=== PATIENT | female | born 1955 | race Caucasian/White ===

== ENCOUNTER → 2017-04-02 | Outpatient (CLI) | payer OTHER ==
--- NOTE | 2017-04-04 11:53 | MM ---
Reason for exam: screening (asymptomatic). Last mammogram was performed 2 years and 2 months ago. History: Patient is postmenopausal. Family history of breast cancer in 2 aunts at age 35. Physical Findings: A clinical breast exam by your physician is recommended on an annual basis and results should be correlated with mammographic findings. MG 3D Screening Mammo W/Cad Bilateral CC and MLO view(s) were taken. Prior study comparison: February 12, 2015, bilateral MG screening mammo w CAD. December 16, 2013, bilateral digital screening mammo w/CAD. There are scattered fibroglandular densities. No significant changes when compared with prior studies. ASSESSMENT: Negative, BI-RAD 1 RECOMMENDATION: Routine screening mammogram of both breasts in 1 year.
== END | disposition home or self-care (01) ==
LOC: RADMAMWWP 13:25
PROVIDERS: ATTEND Family Medicine
DX: Z12.31 Encounter for screening mammogram for malignant neoplasm of breast (principal)
CPT/HCPCS: 77063; G0202

== ENCOUNTER → 2018-04-15 | Outpatient (CLI) | payer OTHER ==
--- NOTE | 2018-04-17 09:12 | MM ---
Reason for exam: screening (asymptomatic). Last mammogram was performed 1 year ago. History: Patient is postmenopausal. Family history of breast cancer in 2 aunts at age 35. Physical Findings: A clinical breast exam by your physician is recommended on an annual basis and results should be correlated with mammographic findings. MG 3D Screening Mammo W/Cad Bilateral CC and MLO view(s) were taken. Prior study comparison: April 02, 2017, bilateral MG 3d screening mammo w/cad. February 12, 2015, bilateral MG screening mammo w CAD. There are scattered fibroglandular densities. Global asymmetry left upper outer quadrant. No significant changes when compared with prior studies. ASSESSMENT: Negative, BI-RAD 1 RECOMMENDATION: Routine screening mammogram of both breasts in 1 year.
== END | disposition home or self-care (01) ==
LOC: RADMAMWWP 10:58
PROVIDERS: ATTEND Pediatrics
DX: Z12.31 Encounter for screening mammogram for malignant neoplasm of breast (principal)
CPT/HCPCS: 77063; 77067

== ENCOUNTER → 2018-07-22 | Outpatient (CLI) | payer OTHER ==
--- NOTE | 2018-07-22 09:11 | US ---
EXAMINATION TYPE: US abdomen limited DATE OF EXAM: 07/22/2018 COMPARISON: US CLINICAL HISTORY: Z82.71 Family history of polycystic Kidney. Patient not NPO, but filled bladder for Abdomen limited order. EXAM MEASUREMENTS: Liver Length: 16.0 cm Gallbladder Wall: 0.2 cm CBD: 0.3 cm Right Kidney: 9.4 x 4.7 x 3.4 cm Left Kidney:10.0 x 5.9 x 4.6cm Pancreas: limitedly seen due to overlying bowel gas Liver: attenuated posteriorly right lobe Gallbladder: wnl Evidence for sonographic Torres's sign: no CBD: wnl Right Kidney: wnl Left Kidney: mild hydronephrosis noted post void; inferior pole simple cortical cyst seen = 1.2 x 1.1 x 1.0cm Bladder: wnl; bilateral ureteral jets were seen; post void volume wnl at 0.7ml. IMPRESSION: 1. Mild left-sided hydronephrosis following micturition. 2. Simple cyst lower pole left kidney.
== END | disposition home or self-care (01) ==
LOC: RADUSWWP 08:13
PROVIDERS: ATTEND Pediatrics
DX: N28.1 Cyst of kidney, acquired (principal); N13.30 Unspecified hydronephrosis; Z82.71 Family history of polycystic kidney
CPT/HCPCS: 76705

== ENCOUNTER 2018-11-07 14:58 | Emergency (ER) | payer OTHER ==
[2018-11-07] MEDS ORDERED: ONDANSETRON 4 MG/2 ML VIAL IVP STA (15:54)
[2018-11-07] MEDS ORDERED: SODIUM CHLORIDE 0.9% 500 ML 500 ML IV STA (15:54)
[2018-11-07] MEDS ORDERED: KETOROLAC 30 MG/ML 1 ML VIAL IVP STA ×2 (15:54→17:51)
--- NOTE | 2018-11-07 16:28 | CT ---
EXAMINATION TYPE: CT abdomen pelvis wo con DATE OF EXAM: 11/07/2018 COMPARISON: None INDICATION: Right sided pain with nausea and hematuria DLP: 414.2 mGycm, Automated exposure control for dose reduction was used. CONTRAST: 0 mL of Isovue 300. Study performed without Oral Contrast TECHNIQUE: Axial images were obtained from above the diaphragm to the pubic rami in the axial plane a t 5 mm thick sections. Reconstructed images are reviewed on the computer in the coronal plane. FINDINGS: Limited CT sections are obtained the lung bases. The lung bases are clear. There is a moderate size hiatal hernia present. CT ABDOMEN: Liver: Normal Spleen: Normal Pancreas: Fatty infiltrated. Adrenal glands: The adrenal glands are normal. Gallbladder: Normal Kidneys: Right kidney: There is mild right hydronephrosis. A mild to moderate right hydroureter is present. Th ere is a 0.3 cm calcification just above the right ureterovesical junction. Left kidney: Moderate hydronephrosis and hydroureter is present. There is a calcification at the prox imal left ureteral vesicle junction measuring 0.6 cm. No left hydroureter is present. Aorta: Vascular calcification is within the aorta. Inferior vena cava: Normal. CT PELVIS: Loops of bowel within the abdomen and pelvis are normal. This study is performed without oral con trast limiting bowel evaluation. Appendix: Not identified. No suspicious inflammatory changes or dilated tubular structures are eviden t. Urinary bladder: Decompressed and cannot be evaluated Genitourinary structures: Uterus and ovaries are absent. Osseous structures: No suspicious lytic or sclerotic lesions. Facet degenerative changes within the l umbar spine. Scoliosis is present IMPRESSIONS: 1. 0.6 cm calcification at the left ureterovesical junction with moderate left hydronephrosis. 2. 0.3 cm distal right ureteral vesicle junction stone with mild right hydroureter nephrosis and hydr oureter.
--- NOTE | 2018-11-07 16:59 | XR ---
EXAMINATION TYPE: XR KUB DATE OF EXAM: 11/07/2018 COMPARISON: NONE HISTORY: Abdominal pain TECHNIQUE: 2 views upright FINDINGS: There is a mild thoracolumbar levorotoscoliosis. Bowel gas pattern is normal. There is no s ign of intestinal obstruction or pneumoperitoneum. Fecal pattern is normal. There is no sign of a mas s. There are no pathologic calcifications over the kidneys. There is possible mild pleural thickening on the left lower lateral chest wall. IMPRESSION: Nonacute abdomen. Possible mild left-sided pleural thickening.
[2018-11-07 17:22] LABS: Basophils % (A) 0 %; Eosinophils # (A) 0.1 k/uL (0-0.7); Eosinophils % (A) 1 %; HCT 39.3 % (34.0-46.0); HGB 12.8 gm/dL (11.4-16.0); Lymphocytes # (A) 1.3 k/uL (1.0-4.8); Lymphocytes % (A) 11 %; MCH 27.8 pg (25.0-35.0); MCHC 32.7 g/dL (31.0-37.0); MCV 85.1 fL (80.0-100.0); Mean Platelet Volume 6.9; Monocytes # (A) 0.3 k/uL (0-1.0); Monocytes % (A) 2 %; Neutrophils # (A) 9.9 k/uL (1.3-7.7); Neutrophils % (A) 85 %; Platelet Count 353 k/uL (150-450); RBC 4.61 m/uL (3.80-5.40); RDW 13.4 % (11.5-15.5); WBC 11.5 k/uL (3.8-10.6)
--- NOTE | 2018-11-07 17:26 | ED ---
Abdominal Pain HPI - General Chief Complaint: Abdominal Pain Stated Complaint: BACK PAIN/FLANK PAIN Time Seen by Provider: 11/07/18 15:38 Source: patient, RN notes reviewed Mode of arrival: ambulatory Limitations: no limitations - History of Present Illness Initial Comments: This is a 63-year-old female who presents to the emergency department with chief complaint of right flank pain. Patient reports sudden onset of right flank pain with radiation to the abdomen approximately an hour and half prior to arrival. She reports the pain is throbbing and pressure-like in nature. She reports nausea but denies vomiting. She reports difficulty urinating, but denies dysuria or increased frequency. She denies fevers or chills. Denies history of kidney stones. - Related Data Previous Rx's Medication Instructions Recorded Ketorolac [Toradol] 10 mg PO Q6HR #8 tab 11/07/18 Tamsulosin [Flomax] 0.4 mg PO DAILY #7 cap 11/07/18 Allergies Allergy/AdvReac Type Severity Reaction Status Date / Time procaine [From Novocain] Allergy Rash/Hives Verified 11/07/18 15:31 propoxyphene [From Darvon] Allergy Rash/Hives Verified 11/07/18 15:31 pseudoephedrine Allergy Rash/Hives Verified 11/07/18 15:31 [From Sudafed] Review of Systems ROS Statement: Those systems with pertinent positive or pertinent negative responses have been documented in the HPI. ROS Other: All systems not noted in ROS Statement are negative. Past Medical History Past Medical History: Diabetes Mellitus History of Any Multi-Drug Resistant Organisms: None Reported Past Surgical History: Ear Surgery, Hernia Repair, Hysterectomy Additional Past Surgical History / Comment(s): bladder suspension eye Past Psychological History: No Psychological Hx Reported Smoking Status: Never smoker Past Alcohol Use History: None Reported Past Drug Use History: None Reported General Exam - General Exam Comments Initial Comments: General: Awake and alert, well-developed; in no apparent distress. HEENT: Head atraumatic, normocephalic. Pupils are equal, round and reactive to light. Extraocular movements intact. Oropharynx moist without erythema or exudate. Neck: Supple. Normal ROM. Cardiovascular: Regular rate and rhythm. No murmurs, rubs or gallops. Chest symmetrical. Respiratory: Lungs clear to auscultation bilaterally. No wheezes, rales or rhonchi. Normal respiratory effort with no use of accessory muscles. Abdomen: Soft, non-tender, non-distended. No rigidity, rebound or guarding. Normal bowel sounds in all 4 quadrants. No CVA tenderness bilaterally. Musculoskeletal: Normal ROM, no tenderness bilateral upper and lower extremities. Ambulating normally. Skin: [place], warm and dry without rashes or lesions. Neurological: Alert and oriented x3. Speech is fluent and answers are appropriate. Psychiatric: Normal mood and affect. No overt signs of depression or anxiety noted. Limitations: no limitations Course Vital Signs 11/07/18 15:27 Temperature 98.0 F Pulse Rate 75 Respiratory 18 Rate Blood Pressure 146/87 O2 Sat by Pulse 100 Oximetry - Reevaluation(s) Reevaluation #1: 11/07/18 17:51 Patient resting comfortably on ED stretcher at this time. She is in no acute distress. Findings have been discussed with patient. The case has been discussed with attending physician, Dr. Avila who was in contact with urologist, Dr. Corona. Patient given option of inpatient versus outpatient treatment. Dr. Corona will see patient in the office tomorrow. This is discussed with patient who does not want to be admitted and would like to be discharged home. She will be discharged home with prescription for Flomax and pain medication. Medical Decision Making - Medical Decision Making This is a 63-year-old female who presents to the emergency department with chief complaint of right flank pain. Computed tomography scan reveals evidence for a 0.3 cm right distal ureter stone and 0.6 cm left stone with bilateral hydronephrosis. No significant evidence for infection. Kidney function is normal. Patient has been in no acute distress and vital signs are stable. She was like to follow up outpatient. She is discharged home at this time with prescriptions for Flomax and Toradol. She is instructed to follow up tomorrow. She is in agreement with plan and voices understanding. All questions have been answered. - Lab Data Result diagrams: 11/07/18 16:35 11/07/18 16:35 Lab Results 11/07/18 11/07/18 11/07/18 Range/Units 16:35 16:35 16:35 WBC 11.5 H (3.8-10.6) k/uL RBC 4.61 (3.80-5.40) m/uL Hgb 12.8 (11.4-16.0) gm/dL Hct 39.3 (34.0-46.0) % MCV 85.1 (80.0-100.0) fL MCH 27.8 (25.0-35.0) pg MCHC 32.7 (31.0-37.0) g/dL RDW 13.4 (11.5-15.5) % Plt Count 353 (150-450) k/uL Neutrophils % 85 % Lymphocytes % 11 % Monocytes % 2 % Eosinophils % 1 % Basophils % 0 % Neutrophils # 9.9 H (1.3-7.7) k/uL Lymphocytes # 1.3 (1.0-4.8) k/uL Monocytes # 0.3 (0-1.0) k/uL Eosinophils # 0.1 (0-0.7) k/uL Basophils # 0.0 (0-0.2) k/uL Sodium 139 (137-145) mmol/L Potassium 4.3 (3.5-5.1) mmol/L Chloride 105 (98-107) mmol/L Carbon Dioxide 26 (22-30) mmol/L Anion Gap 8 mmol/L BUN 14 (7-17) mg/dL Creatinine 0.82 (0.52-1.04) mg/dL Est GFR (CKD-EPI)AfAm 88 (>60 ml/min/1.73 sqM) Est GFR (CKD-EPI)NonAf 76 (>60 ml/min/1.73 sqM) Glucose 196 H (74-99) mg/dL Calcium 10.0 (8.4-10.2) mg/dL Total Bilirubin 0.3 (0.2-1.3) mg/dL AST 23 (14-36) U/L ALT 27 (9-52) U/L Alkaline Phosphatase 79 (38-126) U/L Total Protein 7.5 (6.3-8.2) g/dL Albumin 4.4 (3.5-5.0) g/dL Lipase 74 (23-300) U/L Urine Color Yellow Urine Appearance Cloudy H (Clear) Urine pH 5.0 (5.0-8.0) Ur Specific [place] 1.017 (1.001-1.035) Urine Protein Trace H (Negative) Urine Glucose (UA) 1+ H (Negative) Urine Ketones Negative (Negative) Urine Blood Moderate H (Negative) Urine Nitrite Negative (Negative) Urine Bilirubin Negative (Negative) Urine Urobilinogen <2.0 (<2.0) mg/dL Ur Leukocyte Esterase Large H (Negative) Urine RBC 36 H (0-5) /hpf Urine WBC 36 H (0-5) /hpf Ur Squamous Epith Cells 18 H (0-4) /hpf Urine Mucus Occasional H (None) /hpf - Radiology Data Radiology results: report reviewed CT abdomen and pelvis impressions: 1. 0.6 cm calcification at the left ureterovesicle junction with moderate left hydronephrosis. 2. 0.3 cm distal right ureterovesicle junction stone with mild right hydroureter and hydronephrosis. Disposition Clinical Impression: Bilateral ureteral calculi, Hydronephrosis with ureteral calculus Disposition: HOME SELF-CARE Condition: Good Instructions: Ureteral Stones (ED), Hydronephrosis (ED) Additional Instructions: As discussed, please follow-up with Dr. Corona in the morning. Please take medications as prescribed. Please follow up with primary care provider within 1- 2 days. Return to emergency department if symptoms should worsen or any concerns arise. Prescriptions: Ketorolac [Toradol] 10 mg PO Q6HR #8 tab Tamsulosin [Flomax] 0.4 mg PO DAILY #7 cap Is patient prescribed a controlled substance at d/c from ED?: No Referrals: Renato Mittal MD [Primary Care Provider] - 1-2 days David Corona MD [STAFF PHYSICIAN] - 1-2 days Time of Disposition: 17:59
[2018-11-07 17:30] LABS: Appearance,Urine Cloudy (Clear); Bilirubin,Urine Negative (Negative); Blood,Urine Moderate (Negative); Color,Urine Yellow; Glucose,Urine (UA) 1+ (Negative); Ketones,Urine Negative (Negative); Leukocyte Esterase,Urine Large (Negative); Mucus,Urine Occasional /hpf; Nitrite,Urine Negative (Negative); Protein,Urine Trace (Negative); RBC,Urine 36 /hpf (0-5); Specific Gravity,Urine 1.017 (1.001-1.035); Squamous Epithelial Cell,Urine 18 /hpf (0-4); Urobilinogen,Urine <2.0 mg/dL (<2.0); WBC,Urine 36 /hpf (0-5)
[2018-11-07 17:33] LABS: Albumin 4.4 g/dL (3.5-5.0); Potassium 4.3 mmol/L (3.5-5.1); Total Bilirubin 0.3 mg/dL (0.2-1.3); Total Protein 7.5 g/dL (6.3-8.2)
[2018-11-07] MEDS ORDERED: SODIUM CHLORIDE 0.9% 1,000 ML IV STA (17:46)
[2018-11-07 19:20] VITALS: BP 132/68; PULSE 89; RESP 17; TEMP 97.1
== END 2018-11-07 19:18 | disposition home or self-care (01) ==
LOC: EC 14:58
DX: N13.2 Hydronephrosis with renal and ureteral calculous obstruction (principal); Z88.4 Allergy status to anesthetic agent; Z88.8 Allergy status to other drugs, medicaments and biological substances
CPT/HCPCS: 36415; 80053; 83690; 85025; 81001; 74018; 74176; 99284; 96374; 96375; 96376; 96361 ×2; J2405; J1885

== ENCOUNTER → 2019-09-12 | Outpatient (CLI) | payer OTHER ==
--- NOTE | 2019-09-12 09:49 | US ---
EXAMINATION TYPE: US abdomen limited DATE OF EXAM: 09/12/2019 COMPARISON: NONE CLINICAL HISTORY: R19.00 Intra-abdominal and pelvic swelling. Abdominal lump. TECHNIQUE: Targeted ultrasound was performed of the area of palpable abnormality in the area umbilica l region using grayscale and color ultrasound. In the area of the palpable abnormality there is a hyp oechoic area seen posterior to umbilicus measuring 1.3 x .4 x .7cm. This is seen within the subcutane ous tissues. There is no internal vascularity. This appears to have slightly lobulated borders. This does not have a typical appearance of a lymph node. IMPRESSION: Nonspecific 1.3 cm mass in the area of palpable abnormality, midline periumbilical. Cons iderations are for desmoid, deep sebaceous cyst, atypical lymph node, endometrial implant if there is a history of endometriosis, or other etiology. CT is recommended with contrast of the abdomen for be tter anatomic localization and characterization.
== END | disposition home or self-care (01) ==
LOC: RADUSWWP 08:29
PROVIDERS: ATTEND Pediatrics
DX: L72.3 Sebaceous cyst (principal); R19.00 Intra-abdominal and pelvic swelling, mass and lump, unspecified site; N80.9 Endometriosis, unspecified
CPT/HCPCS: 76705

== ENCOUNTER → 2019-09-25 | Outpatient (CLI) | payer OTHER ==
--- NOTE | 2019-09-25 14:50 | CT ---
EXAMINATION TYPE: CT abdomen pelvis w con DATE OF EXAM: 09/25/2019 COMPARISON: 11/07/2018 HISTORY: Abdominal mass CT DLP: 759.8 mGycm CONTRAST: CT scan of the abdomen and pelvis is performed with Oral Contrast and with IV Contrast, patient injec radha with 100 mL of Isovue 300. FINDINGS: LUNG BASES-: No visible nodule. No infiltrate. LIVER/GB: No calcified gallstones. No space occupying hepatic lesion. Biliary tree is of normal ca liber. Fatty hepatic infiltration noted. PANCREAS: No inflammation. No distinct mass. SPLEEN: No splenic enlargement. No lesion seen. ADRENALS: No nodule. No thickening. KIDNEYS/BLADDER: No hydronephrosis. No nephrolithiasis. Renal cystic changes noted. Urinary bladder grossly unremarkable. BOWEL: Normal appendix. Normal bowel caliber. No inflammation. Right lateral anterior abdominal wal l hernia contains a segment of large bowel without incarceration or strangulation at this time. Herni a sac measures 6.1 cm. GENITAL ORGANS: No gross abnormality. LYMPH NODES: No greater than 1cm abdominal or pelvic lymph nodes are appreciated. AORTA: No significant abnormality. OSSEOUS STRUCTURES: No significant abnormality is seen. OTHER: No significant additional abnormality is seen. IMPRESSION: 1. Right lateral anterior abdominal wall hernia contains a segment of large bowel without incarcerati on or strangulation at this time. Hernia sac measures 6.1 cm. 2. Fatty hepatic infiltration.
== END | disposition home or self-care (01) ==
LOC: RADCTMAIN 12:11
PROVIDERS: ATTEND Pediatrics
DX: K43.9 Ventral hernia without obstruction or gangrene (principal); K76.0 Fatty (change of) liver, not elsewhere classified; E11.9 Type 2 diabetes mellitus without complications
CPT/HCPCS: 36415; 74177; 82565; 84520

== ENCOUNTER → 2019-10-01 | Outpatient (CLI) | payer OTHER ==
--- NOTE | 2019-10-01 13:49 | MM ---
Reason for exam: screening (asymptomatic). Last mammogram was performed 1 year and 6 months ago. History: Patient is postmenopausal. Family history of breast cancer in 2 aunts at age 35. Physical Findings: A clinical breast exam by your physician is recommended on an annual basis and results should be correlated with mammographic findings. MG 3D Screening Mammo W/Cad Bilateral CC and MLO view(s) were taken. Prior study comparison: April 15, 2018, bilateral MG 3d screening mammo w/cad. April 02, 2017, bilateral MG 3d screening mammo w/cad. There are scattered fibroglandular densities. No suspicious abnormality. Left upper outer quadrant focal asymmetry is stable. No significant changes when compared with prior studies. ASSESSMENT: Negative, BI-RAD 1 RECOMMENDATION: Routine screening mammogram of both breasts in 1 year.
== END | disposition home or self-care (01) ==
LOC: RADMAMWWP 11:02
PROVIDERS: ATTEND Pediatrics
DX: Z12.31 Encounter for screening mammogram for malignant neoplasm of breast (principal)
CPT/HCPCS: 77063; 77067

== ENCOUNTER → 2019-11-03 | Outpatient (CLI) | payer OTHER, MEDICARE | END | disposition home or self-care (01) | LOC: LABPAT 11:52 | PROVIDERS: ATTEND Surgery | DX: Z01.810 Encounter for preprocedural cardiovascular examination (principal); Z01.812 Encounter for preprocedural laboratory examination; K43.2 Incisional hernia without obstruction or gangrene | CPT/HCPCS: 93005 ==

== ENCOUNTER → 2019-11-05 | Outpatient (CLI) | payer OTHER ==
[2019-11-05 12:20] LABS: HGB 13.3 gm/dL (11.4-16.0); MCH 27.7 pg (25.0-35.0); MCHC 32.4 g/dL (31.0-37.0); MCV 85.4 fL (80.0-100.0); Mean Platelet Volume 7.3; Platelet Count 349 k/uL (150-450); RDW 13.2 % (11.5-15.5); WBC 9.4 k/uL (3.8-10.6)
== END | disposition home or self-care (01) ==
LOC: LABPAT 11:07
PROVIDERS: ATTEND Anesthesiology
DX: Z01.812 Encounter for preprocedural laboratory examination (principal)
CPT/HCPCS: 36415; 85027

== ENCOUNTER 2019-11-10 09:07 | Observation (INO) | payer OTHER, MEDICARE ==
[2019-11-05 09:56] VITALS: BMI 29.8
[~2019-11-10 09:07] MED LIST: DEXAMETHASONE SOD PHOSPHATE 10 MG/ML 1 ML VIAL IV ONE; HEPARIN SODIUM,PORCINE 5,000 UNIT/ML 1 ML VIAL SQ ONE; LIDOCAINE 1% 20 ML VIAL (10MG/ML) FOR IV START INTRADERMA PRN; ONDANSETRON 4 MG/2 ML VIAL IVP ONE; SCOPOLAMINE 1.5MG/72HR PATCH TRANSDERM ONE
[2019-11-10 10:01] LABS: Glucose,Whole Blood 163 mg/dL (75-99)
[2019-11-10] MEDS: LACTATED RINGERS 1,000 ML IV SCH (10:08)
--- NOTE | 2019-11-10 10:54 | P.GSHP ---
History of Present Illness H&P Date: 11/10/19 Chief Complaint: Incarcerated ventral hernia This is a 64-year-old female who's of incarcerated lateral ventral hernia. She presents today for robotic-assisted laparoscopic repair. Past Medical History Past Medical History: Diabetes Mellitus Additional Past Medical History / Comment(s): ENVIRONMENTAL ALLERGIES, SCOLIOSIS, HX OF KIDNEY STONES. History of Any Multi-Drug Resistant Organisms: None Reported Past Surgical History: Ear Surgery, Hernia Repair, Hysterectomy Additional Past Surgical History / Comment(s): bladder suspension eye Past Anesthesia/Blood Transfusion Reactions: No Reported Reaction Additional Past Anesthesia/Blood Transfusion Reaction / Comment(s): STATES IV'S MAKE HER NAUSEATED PRIOR TO SURGERY-STATES THEY USUALLY GIVE HER RX. Past Psychological History: No Psychological Hx Reported Smoking Status: Never smoker Past Alcohol Use History: None Reported Past Drug Use History: None Reported - Past Family History Mother Family Medical History: No Reported History Medications and Allergies Home Medications Medication Instructions Recorded Confirmed Type metFORMIN HCL 500 mg PO BID 11/07/18 11/10/19 History Albuterol Sulfate [Proair Hfa] 1 - 2 puff INHALATION Q6HR PRN 11/05/19 11/10/19 History Aspirin [Adult Low Dose Aspirin EC] 81 mg PO DAILY 11/05/19 11/05/19 History Cholecalciferol [Vitamin D3 (25 1,000 unit PO DAILY 11/05/19 11/10/19 History Mcg = 1000 Iu)] Fexofenadine/Pseudoephedrine 1 each PO DAILY 11/05/19 11/10/19 History [Mary-D 24 Hour Tablet] Lansoprazole [Prevacid] 30 mg PO HS 11/05/19 11/10/19 History Montelukast [Singulair] 10 mg PO HS 11/05/19 11/10/19 History Rosuvastatin [Crestor] 20 mg PO HS 11/05/19 11/10/19 History amLODIPine BES/OLMESARTAN MED 1 each PO HS 11/05/19 11/10/19 History [Sherron 10-40 MG] Allergies Allergy/AdvReac Type Severity Reaction Status Date / Time procaine [From Novocain] Allergy Rash/Hives Verified 11/10/19 09:39 propoxyphene [From Darvon] Allergy Rash/Hives Verified 11/10/19 09:39 pseudoephedrine Allergy Rash/Hives Verified 11/10/19 09:39 [From [facility]] Surgical - Exam Vital Signs Temp Pulse Resp BP Pulse Ox 98.0 F 78 16 151/70 97 11/10/19 09:42 11/10/19 09:42 11/10/19 09:42 11/10/19 09:42 11/10/19 09:42 - General well developed, well nourished, no distress - Eyes PERRL - ENT normal pinna - Neck no masses - Respiratory normal expansion - Cardiovascular Rhythm: regular - Abdomen Abdomen: soft, non tender Results - Labs Abnormal Lab Results - Last 24 Hours (Table) 11/10/19 Range/Units 09:53 POC Glucose (mg/dL) 163 H (75-99) mg/dL Assessment and Plan Assessment: Right sided ventral hernia. We'll perform laparoscopic robotic-assisted repair.
[2019-11-10] MEDS ORDERED: GLYCOPYRROLATE 0.2 MG/ML 2 ML VIAL ONE (11:12)
[2019-11-10] MEDS ORDERED: fentaNYL (PF) 50 MCG/ML 2 ML AMP ONE (11:12)
[2019-11-10] MEDS ORDERED: NEOSTIGMINE 1 MG/ML 10 ML VIAL ONE (11:12)
[2019-11-10] MEDS ORDERED: SUCCINYLCHOLINE CHLORIDE 100 MG/5 ML SYR IV ONE (11:12)
[2019-11-10] MEDS ORDERED: PROPOFOL 10 MG/ML 20 ML VIAL IV ONE (11:12)
[2019-11-10] MEDS ORDERED: ROCURONIUM BROMIDE 10 MG/ML 10 ML VIAL IV ONE (11:12)
[2019-11-10] MEDS ORDERED: MIDAZOLAM 2 MG/2 ML VIAL ONE (11:12)
[2019-11-10] MEDS ORDERED: CHLOROPROCAINE 3% 30 MG/ML 20 ML VIAL MISCELLANE ONE (11:53)
[2019-11-10] MEDS ORDERED: NALOXONE 0.4 MG/ML 1 ML VIAL IV PRN (12:22)
[2019-11-10] MEDS ORDERED: HYDROcodone/APAP 5-325MG 1 EACH TAB PO PRN (12:22)
[2019-11-10] MEDS ORDERED: ONDANSETRON 4 MG/2 ML VIAL IVP PRN (12:22)
[2019-11-10] MEDS ORDERED: LACTATED RINGERS 1,000 ML IV ONE ×2 (12:22→12:42)
[2019-11-10] MEDS ORDERED: METOCLOPRAMIDE 5 MG/ML 2 ML VIAL IVP PRN (12:22)
--- NOTE | 2019-11-10 12:22 | P.OP ---
Date of Procedure: 11/10/19 Preoperative Diagnosis: Ventral hernia Postoperative Diagnosis: Ventral hernia Procedure(s) Performed: Aury laparoscopy Laparoscopic lysis of adhesions (Ventral hernia Anesthesia: EVIN Surgeon: Gui Galvan Estimated Blood Loss (ml): 5 Pathology: none sent Condition: stable Disposition: PACU Description of Procedure: MThe patient was placed on the operating table in the supine position. He received general anesthesia. His abdomen was prepped and draped usual fashion. Using a 5 mm optical trocar under direct visualization the peritoneal cavity was entered in the left upper quadrant. The abdomen was then insufflated. The laparoscope was placed back into the perineal cavity. There were significant adhesions along the midline abdomen. The scope was then positioned through the upper abdomen and then the ventral hernia in the right lower quadrant could be seen. Due to the extensive adhesions decided to her to the open procedure. The trochars withdrawn. The skin was incised in the low midline. Which cautery used to dissect through the subcutaneous tissues. The fascia was then opened. There is extensive adhesions the fascia. The lysed with sharp dissection. Approximately 15 minutes of operative time used to lyse adhesions. At this point the peritoneum over the hernia was opened with left cautery. And the fascial defect was closed using [id number] Ethibond suture. The peritoneum was then closed with 0 Vicryl. There is no bleeding seen. The fascial midline was closed with looped #1 PDS suture. Skin was closed gustavo. Patient tolerated procedure well and sent to recovery in stable condition.
[2019-11-10] MEDS: HYDROmorphone 0.5 MG/0.5 ML SYRINGE IVP PRN ×4 (12:35→16:01)
[2019-11-10] MEDS ORDERED: diphenhydrAMINE 50 MG/ML 1 ML VIAL IVP ONE (12:56)
[2019-11-10 13:55] LABS: Glucose,Whole Blood 268 mg/dL (75-99)
[2019-11-10] MEDS: KETOROLAC 30 MG/ML 1 ML VIAL IVP SCH ×2 (13:57→20:52)
[2019-11-10 15:34] VITALS: RESP 16
[2019-11-10 16:29] LABS: Glucose,Whole Blood 262 mg/dL (75-99)
[2019-11-10] MEDS ORDERED: ALBUTEROL NEBULIZED 2.5 MG/3 ML INHALATION PRN (17:30)
[2019-11-10] MEDS: PANTOPRAZOLE 40 MG/10 ML VIAL IVP SCH (18:04)
--- NOTE | 2019-11-10 20:38 | CONS ---
CONSULTATION DATE OF SERVICE: 11/10/2019. REASON FOR CONSULTATION: Advice regarding asthma and other multiple medical issues, requested by Dr. Galvan. HISTORY OF PRESENT ILLNESS: This 64-year-old woman with a past medical history of multiple medical problems including history of diabetes mellitus, history of environmental allergies, history of scoliosis, history of ear surgery, hernia repair, being followed by Dr. Mittal in the outpatient setting underwent laparoscopic ventral hernia repair and lysis of adhesions by Dr. Galvan. Patient tolerated the procedure well. The patient has complaints of cough at this time. There is no history of fever, rigors or chills. No history of headache, loss of consciousness, seizures. PAST MEDICAL HISTORY: History of diabetes mellitus type 2 and environmental allergies, asthma, history of hernia surgery. MEDICATIONS: Home medications prior to admission include: 1. Metformin 500 mg p.o. b.i.d. 2. Amlodipine olmesartan 1 tab q.h.s. 3. Crestor 20 mg q.h.s. 4. Singulair 10 mg q.h.s. 5. Prevacid 30 mg q.h.s. 6. Mary 1 tablet p.o. daily. 7. Vitamin D3 1000 units daily. 8. ProAir 1-2 puffs q.6h p.r.n. 9. Ecotrin 81 mg daily. ALLERGIES: NOVOCAIN, DARVON, SUDAFED. FAMILY HISTORY: No history of heart disease or strokes in the family. SOCIAL HISTORY: No history of smoking. No history of alcohol intake. REVIEW OF SYSTEMS: ENT: No diminished vision. No diminished hearing. CARDIOVASCULAR system: No angina, palpitation. Respiration as mentioned earlier. GI as mentioned earlier. no dysuria. Nervous systems: No numbness or weakness. ALLERGY/IMMUNOLOGY: As mentioned earlier. HEMATOLOGY/ONCOLOGY: No history of anemia. ENDOCRINE: As mentioned earlier. CONSTITUTIONAL: As mentioned earlier. DERMATOLOGY: Negative. RHEUMATOLOGY negative. PSYCHIATRY as mentioned. PHYSICAL EXAMINATION: Alert and oriented times three. Pulse 85, blood pressure 90/67, respiration 20. Temperature normal. Pulse ox 96% on 2 L. HEENT is conjunctivae normal. Oral mucosa moist. NECK is no jugular venous distention. No carotid bruit. No lymph node enlargement. CARDIOVASCULAR system: S1, S2. No S3, no S4. RESPIRATORY: Breath sounds diminished in the bases. Scattered rhonchi and crackles. ABDOMEN: Soft. Status post surgery. No mass palpable. LEGS: No edema. No swelling. NERVOUS SYSTEM: Higher functions as mentioned earlier. Moves all four limbs. No focal motor or sensory deficits. SKIN: No ulcer, no rash and no bleeding. JOINTS: No active deforming arthropathy. LABS: Accu-Cheks 268, 262. ASSESSMENT: 1. Status post ventral hernia, laparoscopic ventral hernia repair and lysis of adhesions. 2. Diabetes mellitus type 2. 3. Asthma, chronic intermittent. 4. History of environmental allergies. 5. History of scoliosis. 6. History of kidney stones. 7. History of hernia surgery. RECOMMENDATIONS AND DISCUSSION: In this 64-year-old woman who presented with multiple complex medical issues, we will monitor the patient closely. Continue the current medications, management and symptomatic treatment. Otherwise, I would recommend bronchodilators. Resume the home medications. Otherwise, incentive spirometry. DVT prophylaxis. Follow the patient closely. The patient may be asked to follow with Dr. Mittal closely after discharge. Thank you Dr. Galvan for letting us participate in the care of this patient. MMODL / IJN: [id number] /
[2019-11-10] MEDS: metFORMIN 500 MG TAB PO SCH (20:51)
[2019-11-10] MEDS: LORATADINE-PSEUDOEPH 5-120 MG 1 EACH TAB.ER.12H PO SCH (20:53)
[2019-11-10] MEDS ORDERED: ATORVASTATIN 20 MG TAB PO SCH (21:00)
[2019-11-10] MEDS ORDERED: LOSARTAN 50 MG TAB PO SCH (21:00)
[2019-11-10] MEDS ORDERED: MONTELUKAST 10 MG TAB PO SCH (21:00)
[2019-11-10] MEDS ORDERED: amLODIPine 10 MG TAB PO SCH (21:00)
[2019-11-10 21:18] LABS: Glucose,Whole Blood 281 mg/dL (75-99)
[2019-11-10] MEDS: INSULIN ASPART (NovoLOG) 100 UNIT/ML VIAL SQ SCH (21:31)
[2019-11-10] MEDS: ALBUTEROL NEBULIZED 2.5 MG/3 ML INHALATION SCH (22:12)
[2019-11-11] MEDS: KETOROLAC 30 MG/ML 1 ML VIAL IVP SCH ×3 (02:29→12:54)
[2019-11-11] MEDS: HYDROmorphone 0.5 MG/0.5 ML SYRINGE IVP PRN (04:48)
[2019-11-11] MEDS: LACTATED RINGERS 1,000 ML IV SCH (04:49)
[2019-11-11 06:57] LABS: Glucose,Whole Blood 206 mg/dL (75-99)
[2019-11-11] MEDS: ALBUTEROL NEBULIZED 2.5 MG/3 ML INHALATION SCH ×2 (07:51→12:17)
[2019-11-11] MEDS: INSULIN ASPART (NovoLOG) 100 UNIT/ML VIAL SQ SCH ×2 (08:19→12:55)
[2019-11-11] MEDS: metFORMIN 500 MG TAB PO SCH (08:19)
[2019-11-11] MEDS: LORATADINE-PSEUDOEPH 5-120 MG 1 EACH TAB.ER.12H PO SCH (08:19)
[2019-11-11] MEDS: PANTOPRAZOLE 40 MG/10 ML VIAL IVP SCH (08:20)
[2019-11-11] MEDS ORDERED: ENOXAPARIN 40 MG/0.4 ML SYRINGE SQ SCH (09:00)
--- NOTE | 2019-11-11 11:33 | P.DS ---
Providers Date of admission: 11/11/19 05:06 Expected date of discharge: 11/11/19 Attending physician: Gui Galvan Consults: 11/10/19 12:22 Consult Physician Routine Consulting Provider: Morena Mckinley Consult Reason/Comments: Medical management Do you want consulting provider notified?: Yes Primary care physician: Renato Daxa [facility] Course: 64-year-old female who underwent ventral hernia repair with Dr. Galvan on 11/10/2019. Patient is doing well postoperatively without immediate complications. Pain is controlled on oral medications. Vital signs are stable. She is tolerating diet without nausea or vomiting. She is stable for discharge home today. Please see EMR for further hospital course details. Discharge diagnosis 1. Status post repair of ventral hernia Nurse practitioner note has been reviewed by physician. Signing provider agrees with the documented findings, assessment, and plan of care. Plan - Discharge Summary Discharge Rx Participant: Yes New Discharge Prescriptions: New Hydrocodone/Acetaminophen [[place] 5-325] 1 tab PO Q4HR PRN 3 Days #18 tab PRN Reason: Pain No Action metFORMIN HCL 500 mg PO BID amLODIPine BES/OLMESARTAN MED [[place] 10-40 MG] 1 each PO HS Rosuvastatin [Crestor] 20 mg PO HS Montelukast [Singulair] 10 mg PO HS Lansoprazole [Prevacid] 30 mg PO HS Albuterol Sulfate [Proair Hfa] 1 - 2 puff INHALATION Q6HR PRN PRN Reason: Shortness Of Breath Fexofenadine/Pseudoephedrine [Mary-D 24 Hour Tablet] 1 each PO DAILY Aspirin [Adult Low Dose Aspirin EC] 81 mg PO DAILY Cholecalciferol [Vitamin D3 (25 Mcg = 1000 Iu)] 1,000 unit PO DAILY Discharge Medication List metFORMIN HCL 500 mg PO BID 11/07/18 [History] Albuterol Sulfate [Proair Hfa] 1 - 2 puff INHALATION Q6HR PRN 11/05/19 [History] Aspirin [Adult Low Dose Aspirin EC] 81 mg PO DAILY 11/05/19 [History] Cholecalciferol [Vitamin D3 (25 Mcg = 1000 Iu)] 1,000 unit PO DAILY 11/05/19 [History] Fexofenadine/Pseudoephedrine [Mary-D 24 Hour Tablet] 1 each PO DAILY 11/05/19 [History] Lansoprazole [Prevacid] 30 mg PO HS 11/05/19 [History] Montelukast [Singulair] 10 mg PO HS 11/05/19 [History] Rosuvastatin [Crestor] 20 mg PO HS 11/05/19 [History] amLODIPine BES/OLMESARTAN MED [[place] 10-40 MG] 1 each PO HS 11/05/19 [History] Hydrocodone/Acetaminophen [[place] 5-325] 1 tab PO Q4HR PRN 3 Days #18 tab 11/11/19 [Rx] Follow up Appointment(s)/Referral(s): Gui Galvan MD [STAFF PHYSICIAN] - 11/17/19 8:50 am Patient Instructions/Handouts: Ventral Hernia Repair (DC)
[2019-11-11 11:49] LABS: Glucose,Whole Blood 213 mg/dL (75-99)
[2019-11-11 13:27] VITALS: BP 117/73; PULSE 91; TEMP 98.1
--- NOTE | 2019-11-11 15:49 | PN ---
PROGRESS NOTE DATE OF SERVICE: 11/11/2019 This is a 64-year-old woman who was admitted after ventral hernia repair, also had significant asthma. The patient is reporting that pain asthma is exacerbating recently and not being controlled by inhalers in the hospital and provided him with nebulizer with nebulizers with some relief. The patient still has some audible wheezing at this time. Patient closely monitored. Surgery is also following the patient closely. PAST MEDICAL HISTORY: Review of systems cardiovascular no angina respiration mentioned earlier. : No dysuria or retention. CURRENT MEDICATIONS: 1. [place] 5 q.6h p.r.n. Ventolin nebulizer t.i.d. and p.r.n. Norvasc 10 mg daily Lipitor 40 mg, Lovenox 40 mg. 2. Dilaudid p.r.n. 3. Toradol p.r.n. 4. Lidocaine patch. 5. Loratadine b.i.d. 6. Cozaar 150 mg q.h.s. 7. Glucophage 500 mg b.i.d. 8. Reglan 10 mg q.6 p.r.n. 9. Narcan 0.2 q.2 p.r.n. 10.Zofran 4 mg q.8 p.r.n. 11.Protonix 40 mg p.o. daily. PHYSICAL EXAMINATION: Patient is alert, oriented x3. Pulse 91, blood pressure 117/70, respiration 16, temperature 98.1, pulse ox 98% on 3 L. HEENT: Conjunctivae normal. NECK: Normal. CARDIOVASCULAR SYSTEM: S1, S2, muffled. RESPIRATION: Breath sounds diminished at the bases, bilateral scattered rhonchi, no crackles. Expiratory wheezing also present. ABDOMEN: Soft, status post surgery. EXTREMITIES: Legs no edema. No swelling. NERVOUS SYSTEM: No focal deficits. LABS: Accu-Cheks 206, 213. ASSESSMENT: 1. Status post ventral hernia, laparoscopic hernia repair and lysis of adhesions. 2. Asthma, acute exacerbation with chronic intermittent worsening in the background. 3. Diabetes mellitus type 2. 4. History of environmental allergies. 5. History of scoliosis. 6. History of kidney stones. 7. History of hernia surgery. RECOMMENDATION: I would recommend continue with the nebulizers at home because the patient has significant exacerbation of asthma which has not been controlled recently outpatient. The abdominal surgery the patient just had is not going to help her asthma. I strongly recommend to continue with nebulizers at this time to prevent possibility of atelectasis and further respiratory complications. Otherwise, Dr. Mittal will follow the patient in the outpatient setting and rest of the recommendations per our recommendations per surgery. The prescriptions for nebulizer and albuterol given to the patient. Discussed with the patient at length and Case Management to follow with insurance company for the required authorization and the rest of the paperwork. Once again, I strongly recommend nebulizers and albuterol nebulizer t.i.d. and in addition to p.r.n. as needed also to prevent further postoperative complications. MMODL / IJN: [id number] /
[2019-11-12] MEDS ORDERED: PANTOPRAZOLE 40 MG TABLET PO SCH (07:30)
== END 2019-11-11 15:06 | disposition home or self-care (01) ==
LOC: OR 09:07 → 6NMEDSUR 12:29 → OR 11-11 04:53 → 6NMEDSUR 11-11 05:06
PROVIDERS: ADMIT Surgery; ATTEND Surgery
DX: K43.6 Other and unspecified ventral hernia with obstruction, without gangrene (principal); E11.9 Type 2 diabetes mellitus without complications; J45.21 Mild intermittent asthma with (acute) exacerbation; M41.9 Scoliosis, unspecified; Z79.82 Long term (current) use of aspirin; Z79.84 Long term (current) use of oral hypoglycemic drugs; Z79.899 Other long term (current) drug therapy; Z87.442 Personal history of urinary calculi; Z90.710 Acquired absence of both cervix and uterus; Z88.4 Allergy status to anesthetic agent; Z88.5 Allergy status to narcotic agent; Z88.8 Allergy status to other drugs, medicaments and biological substances; Z53.31 Laparoscopic surgical procedure converted to open procedure
CPT/HCPCS: 49561; 94640 ×2; 86900; 86901; 86850; G0378; J2400; J2250; J1200; J1644; J1100; J2710; J0690; J2405; J1650; J3010; J1885 ×2; J0330; J2704; C9113 ×2; J1170 ×2